=== PATIENT | female | born 1960 | race Caucasian/White ===

== ENCOUNTER → 2017-07-29 | Outpatient (CLI) | payer OTHER ==
[~2017-07-29] MED LIST: BND25X
[2017-07-29 17:54] LABS: BLOOD UREA NITROGEN 18 mg/dl (7-18); BUN/CREATININE RATIO 25.2 (10-20); CARBON DIOXIDE 31 mmol/L (21-32); CHLORIDE 101 mmol/L (98-107); CREATININE 0.72 mg/dl (0.60-1.20); GLUCOSE 103 mg/dl (70-99); POTASSIUM 3.6 mmol/L (3.5-5.1); SODIUM 137 mmol/L (136-145)
== END | disposition home or self-care (01) ==
LOC: C.LABPVFM 13:51
PROVIDERS: ATTEND Nurse Practitioner
DX: G71.0 Muscular dystrophy (principal)

== ENCOUNTER 2017-10-31 12:19 | Emergency (ER) | payer OTHER ==
[~2017-10-31] VITALS: Ht 157.5 cm; Wt 67.0 kg
[2017-10-31 12:25] VITALS: TEMP 36.7; Ht 157.5 cm; Wt 67.0 kg
[2017-10-31] MEDS ORDERED: HYDR12.56 PO (12:47)
[2017-10-31] MEDS ORDERED: IBUP-1050 PO (12:47)
[2017-10-31] MEDS ORDERED: FLUT1INH INH (12:47)
[2017-10-31] MEDS ORDERED: DIPH25CA65 PO (12:47)
[2017-10-31] MEDS ORDERED: OMEG10007 PO (12:47)
[2017-10-31] MEDS ORDERED: PRED20TA PO (12:47)
[2017-10-31] MEDS ORDERED: LISI-461 PO (12:47)
[2017-10-31] MEDS ORDERED: UMEC1INH INH (12:47)
[2017-10-31] MEDS ORDERED: POTA99TA PO (12:47)
[2017-10-31 13:00] LABS: BASO % 0.2 %; BASO ABS # 0.03 K/uL (0-0.2); EOS % 0.1 %; EOS ABS # 0.02 K/uL (0-0.5); HEMATOCRIT 49.4 % (37-47); HEMOGLOBIN 15.9 g/dL (12.0-16.0); IG# 0.02 K/uL (0.00-0.02); LYMPH % 11.6 %; LYMPH ABS # 1.55 K/uL (1.2-3.4); MEAN CELL VOLUME 96.3 fL (80-100); MEAN CORPUSCULAR HGB CONC 32.2 g/dl (32-36); MEAN PLATELET VOLUME 9.5 fL (7.4-10.4); MONO % 4.3 %; MONO ABS # 0.58 K/uL (0.11-0.59); NEUT % 83.7 %; NEUT ABS # 11.17 K/uL (1.4-6.5); PLATELET COUNT 377 K/uL (130-400); RED CELL DISTRIBUTION WIDTH CV 14.5 % (11.5-14.5); RED CELL DISTRIBUTION WIDTH SD 51.1 fL (36.4-46.3); WHITE BLOOD COUNT 13.37 K/uL (4.8-10.8)
[2017-10-31 13:12] LABS: CALCIUM 9.6 mg/dl (8.5-10.1); CREATININE 0.37 mg/dl (0.60-1.20); POTASSIUM 3.3 mmol/L (3.5-5.1)
[2017-10-31 13:40] VITALS: BP 136/95; PULSE 102; O2SAT 92
--- NOTE | 2017-10-31 17:59 | EMERGENCY ROOM VISIT NOTE ---
History Report prepared by Nathaly: Tatyana Mason Under the Supervision of: Dr. Toni Treviño D.O. First contact with patient: 12:30 Chief Complaint: HEAD PAIN Stated Complaint: LUMPS/PAIN ON HEAD & L SIDE OF FACE History of Present Illness The patient is a 57 year old female who presents to the Emergency Room with complaints of worsening red lumps on the left side of her head beginning on Wednesday, four days ago. The patient states the lumps on her head are sore and painful to touch. She reports she has about 5 lumps in total. The patient states she went to a clinic a couple days ago and she was diagnosed with temporal arteritis and was put on prednisone. Lump is extremely painful upon palpation. It is sharp and stabbing in nature. The patient states the lumps have gotten more sore since she was put on prednisone. Pt denies headache, change in vision, change in vision, headache, pain with biting down, fevers, chest pain, shortness of breath, nausea, vomiting, diarrhea, pain with urination , and melena. Source of History: patient Onset: four days ago Position: head Quality: other (re lumps) Timing: worsening Associated Symptoms: No headache, No chest pain, No SOB, No nausea, No vomiting Review of Systems See HPI for pertinent positives & negatives. A total of 10 systems reviewed and were otherwise negative. Past Medical & Surgical Medical Problems: (1) No Known Active Medical Problems Family History Patient reports no known family medical history. Social History Smoking Status: Current Every Day Smoker Marital Status: Housing Status: lives with significant other Current/Historical Medications Scheduled Diphenhydramine Hcl (Benadryl Allergy), 1 CAP PO HS Fish Oil ([place]-3), 1 CAP PO DAILY Fluticasone Furoate-Vilanterol (Breo Ellipta), 1 PUFF INH DAILY Hydrochlorothiazide (Hctz), 12.5 MG PO DAILY Ibuprofen (Advil), 200 MG PO HS Lisinopril (Zestril), 10 MG PO DAILY Potassium (Potassium), 1 TAB PO DAILY Prednisone (Prednisone), 20 MG PO DIRECTED Umeclidinium Dresser (Incruse Ellipta), 1 PUFF INH DAILY Allergies Coded Allergies: No Known Allergies (Unverified , 09/30/06) Physical Exam Vital Signs Date Time Temp Pulse Resp B/P (MAP) Pulse Ox O2 Delivery O2 Flow Rate FiO2 10/31/17 13:40 102 136/95 92 Room Air 10/31/17 12:25 36.7 108 18 143/94 94 Room Air Physical Exam GENERAL: Sitting up in bed, alert, well appearing, well nourished, no distress, non-toxic HEAD: 3 areas of erythema which are slightly raised, on left side of scalp and left eyebrow, no vesicles. EYE EXAM: normal conjunctiva. OROPHARYNX: no exudate, no erythema, lips, buccal mucosa, and tongue normal and mucous membranes are moist NECK: supple, no nuchal rigidity, no adenopathy, non-tender LUNGS: Clear to auscultation. Normal chest wall mechanics HEART: no murmurs, S1 normal and S2 normal ABDOMEN: abdomen soft, non-tender, normo-active bowel sounds, no masses, no rebound or guarding. UPPER EXTREMITIES: upper extremities are grossly normal. LOWER EXTREMITIES: No pitting edema. NEURO EXAM: Normal sensorium, cranial nerves II-XII grossly intact, normal speech, no gross weakness of arms, no gross weakness of legs. Medical Decision & Procedures Laboratory Results 10/31/17 12:50 Red Blood Count 5.13, Mean Corpuscular Volume 96.3, Mean Corpuscular Hemoglobin 31.0, Mean Corpuscular Hemoglobin Concent 32.2, Mean Platelet Volume 9.5, Neutrophils (%) (Auto) 83.7, Lymphocytes (%) (Auto) 11.6, Monocytes (%) (Auto) 4.3, Eosinophils (%) (Auto) 0.1, Basophils (%) (Auto) 0.2, Neutrophils # (Auto) 11.17, Lymphocytes # (Auto) 1.55, Monocytes # (Auto) 0.58, Eosinophils # (Auto) 0.02, Basophils # (Auto) 0.03 10/31/17 12:50 Test 10/31/17 12:50 White Blood Count 13.37 K/uL (4.8-10.8) Red Blood Count 5.13 M/uL (4.2-5.4) Hemoglobin 15.9 g/dL (12.0-16.0) Hematocrit 49.4 % (37-47) Mean Corpuscular Volume 96.3 fL (80-100) Mean Corpuscular Hemoglobin 31.0 pg (25-34) Mean Corpuscular Hemoglobin Concent 32.2 g/dl (32-36) Platelet Count 377 K/uL (130-400) Mean Platelet Volume 9.5 fL (7.4-10.4) Neutrophils (%) (Auto) 83.7 % Lymphocytes (%) (Auto) 11.6 % Monocytes (%) (Auto) 4.3 % Eosinophils (%) (Auto) 0.1 % Basophils (%) (Auto) 0.2 % Neutrophils # (Auto) 11.17 K/uL (1.4-6.5) Lymphocytes # (Auto) 1.55 K/uL (1.2-3.4) Monocytes # (Auto) 0.58 K/uL (0.11-0.59) Eosinophils # (Auto) 0.02 K/uL (0-0.5) Basophils # (Auto) 0.03 K/uL (0-0.2) RDW Standard Deviation 51.1 fL (36.4-46.3) RDW Coefficient of Variation 14.5 % (11.5-14.5) Immature Granulocyte % (Auto) 0.1 % Immature Granulocyte # (Auto) 0.02 K/uL (0.00-0.02) Anion Gap 8.0 mmol/L (3-11) Est Creatinine Clear Calc Drug Dose 152.4 ml/min Estimated GFR () 138.5 Estimated GFR (Non- 119.5 BUN/Creatinine Ratio 58.1 (10-20) Calcium Level 9.6 mg/dl (8.5-10.1) Laboratory results per my review. ED Course ED COURSE: Vital signs were reviewed and showed tachycardic The patients medical record was reviewed The above diagnostic studies were performed and reviewed. ED treatments and interventions as stated above. 1231: The patient was evaluated in room A10. A complete history and physical examination was performed. 1358: I updated the patient on her test results. 1406: Upon reevaluation, the patient is resting comfortably.I discussed my findings with the patient and she understands and agrees with the treatment plan. Based on the patients age, coexisting illnesses, exam and lab findings the decision to treat as an outpatient was made. The patient remained stable while under my care. The patient appeared well at the time of discharge. Medical Decision Differential diagnosis: Etiologies such as contact dermatitis, viral exanthem, urticaria, allergic reaction, Meza-Elier syndrome, toxic epidermal necrolysis, erythema multiforme, cellulitis, scabies, HSV, varicella, zoster, eczema, staph scalded skin syndrome, fungal infection, as well as others were entertained. Patient is a 57-year-old female who presents the ER for rash. On exam she has several areas of erythema on top of her head on the left side. No vesicles. Question zoster. CBC shows a mild leukocytosis. Potassium 3.3. Do favor both secondary to steroids. Patient is otherwise well-appearing. No involvement of the eye. She is updated at bedside. She is discharged follow-up with PCP as an outpatient. I do not believe that there is any signs of cellulitis or abscess. Discussed with Pt concerning signs and symptoms to watch out for. Pt was instructed to follow up with their PCP and discussed with the patient their option to return to the ED at anytime for persistent or worsening symptoms. The appropriate anticipatory guidance and out-patient management, including indications for return to the emergency department, were explained at length to the patient and understood. Medication Reconcilliation Current Medication List: was personally reviewed by me Blood Pressure Screening Patient's blood pressure: Normal blood pressure Impression Primary Impression: Rash Additional Impressions: Leukocytosis Hypokalemia Scribe Attestation The scribe's documentation has been prepared under my direction and personally reviewed by me in its entirety. I confirm that the note above accurately reflects all work, treatment, procedures, and medical decision making performed by me. Departure Information Dispostion Home / Self-Care Referrals Ingris Zamora C.R.N.P (PCP) Forms HOME CARE DOCUMENTATION FORM, IMPORTANT VISIT INFORMATION, WORK / SCHOOL INSTRUCTIONS Patient Instructions ED Shingles, [facility], Rash - [facility] Additional Instructions Please follow up with your primary care doctor with in the next 24 hours. Any worsening of your symptoms, please return to the ED immediately. This includes any fevers greater than 100.4, worsening pain, chest pain, shortness breath, persistent nausea, vomiting, unable to eat or drink, or any other concerning signs or symptoms from your standpoint. Please make sure you follow-up with your PCP in the next 2 days as this does not classically look like shingles by do favor that is the likely cause. Any involvement of your eye please return immediately to the ER. Please continue steroids as previously prescribed. Problem Qualifiers Additional Impressions: Leukocytosis Leukocytosis type: unspecified Qualified Codes: D72.829 - Elevated white blood cell count, unspecified
== END 2017-10-31 14:10 | disposition home or self-care (01) ==
LOC: C.EDB 12:20 → C.EDA 14:10
DX: R21 Rash and other nonspecific skin eruption (principal); D72.829 Elevated white blood cell count, unspecified; E87.6 Hypokalemia; Z79.899 Other long term (current) drug therapy; F17.200 Nicotine dependence, unspecified, uncomplicated

== ENCOUNTER 2023-10-11 18:47 | Inpatient (IN) ==
--- NOTE | 2023-10-11 19:05 | Emergency Department Note ---
Impression & Plan Colonic diverticular abscess, Bilateral lower abdominal pain ED Provider Note NAME: BARBY MARTINEZ AGE: 63 SEX: F : 1960 ARRIVES VIA: Ambulance INFORMANT: Patient, ED PROVIDER(S): Anthony Tomas DO CHIEF COMPLAINT: Abdominal pain HPI: The patient is a 63-year-old female who presented to the emergency department for an evaluation of abdominal pain. The patient had abdominal cramping and loose bowel movements over the course the last week. The patient denies having any fever. She has had no vomiting. The patient denies having any significant constipation but she does feel as though she is having trouble passing formed stools. She denies having lower extremity swelling. She has not been seen by her family doctor. ROS: See above HPI for pertinent positives & negatives. A total of 10 systems reviewed and were otherwise negative. PAST MEDICAL HISTORY: See Below PAST SURGICAL HISTORY: See Below FAMILY HISTORY: See Below SOCIAL HISTORY: See Below HOME MEDICATIONS: See Below ALLERGIES: See Below VITALS: See Below PHYSICAL EXAMINATION: GENERAL: Patient is awake alert in no acute distress patient is resting comfortably and showing no signs of anxiety EYES: The conjunctivae are clear. The pupils are round and reactive. EARS, NOSE, MOUTH AND THROAT: The nose is without any evidence of any deformity. NECK: The neck is nontender and supple. RESPIRATORY: Normal respiratory effort is noted there is no evidence of wheezing rhonchi or rales CARDIOVASCULAR: Regular rate and rhythm noted there no murmurs rubs or gallops normal S1 normal S2. GASTROINTESTINAL: The abdomen is soft and mildly distended. There is diffuse tenderness to palpation but no guarding rigidity MUSCULOSKELETAL/EXTREMITIES: There is no evidence of gross deformity full range of motion is noted in the hips and shoulders. SKIN: There is no obvious evidence of any rash. There are no petechiae, pallor or cyanosis noted. NEUROLOGIC: Patient is awake alert and oriented x3 The patient is a 63-year-old female who presented to the emergency department for an evaluation of abdominal pain and diarrhea. MEDICAL DECISION MAKING: The patient did have reproducible lower abdominal tenderness on physical exam. Her white blood cell count was found to be elevated. Radiographic studies did not reveal an obvious source for the patient's complaints. For this reason CT of the abdomen and pelvis was obtained which appears to be consistent with a diverticular abscess. I discussed the patient's laboratory and radiographic studies with her. I discussed her condition with the on-call [facility] general surgeon. He does recommend that we consider transfer for the patient for possible interventional radiology. I discussed this case with the surgeon at [facility]. They have agreed to accept the patient in transfer. Transfer paperwork was filled out by myself. Triage Nursing notes reviewed. Prior medical records reviewed Vital Signs: reviewed and remarkable for elevated blood pressure. Differential diagnosis: Etiologies such as appendicitis, diverticulitis, obstruction, inflammatory bowel disease, renal colic, PUD, biliary pathology, pancreatitis, mesenteric ischemia, aortic pathology, infections, genitourinary, UTI, perforated viscus, as well as others were entertained. ER treatment provided: See below Diagnostics interpreted by me: ECG: none Cardiac Monitoring: An order was placed for continuous cardiac monitoring. The monitor shows a rate of 77 bpm with sinus rhythm. Laboratory studies: As stated above and show below. Imaging studies: See below. Radiographic imaging was reviewed by myself Consultation(s): I discussed this case with Dr. Vazquez who is on-call for general surgery. I discussed this case with Dr. Thomas who is on-call for surgery at [facility]. I discussed this case with Dr. Stern who is on-call for surgery at [facility]. I discussed this case with Dr. De who is on-call for internal medicine hospitalist at [facility]. They will accept the patient in transfer. The patient is awaiting transportation and room assignment at this time. The patient was signed out to Dr. Perales at change of shift. Please see his note for overnight care and further disposition. Past Med/Surg History Medical History Encounter for screening for malignant neoplasm of rectum Encounter for screening for malignant neoplasm of colon Nicotine dependence Acute respiratory failure with hypoxia Bilateral leg weakness Right leg pain Muscular dystrophy Tachycardia Hypertension Acid reflux Cellulitis Chronic bronchitis Leukocytosis Hypokalemia Surgical History Hx of cholecystectomy Family History Denies family history of Ovarian cancer Prostate cancer Myocardial infarction Breast cancer Social History (Reviewed 10/11/23 @ 19:04 by PAM Cartwright Smoking Status: Former smoker Hx Alcohol Use: No Hx Substance Use: No Preferred Language: Pashto marital status: Current Living Situation: Spouse current occupational status: disabled Feels Safe at Home: Yes caffeine: Yes Dental Care, Regularly: No Physical Activity Frequency: Does not Exercise Seatbelt Use: always Sunscreen Use: Yes Allergies Allergies Allergy/AdvReac Type Severity Reaction Status Date / Time No Known Allergies Allergy Unverified 10/11/23 21:51 Home Meds Home Medications Medication Instructions Recorded Confirmed omeprazole 20 mg capsule,delayed 20 mg PO QAM 10/11/23 10/11/23 release Previous Rx's Medication Instructions Recorded fluticasone propionate 50 1 sprays intranasal BID PRN 01/15/19 mcg/actuation nasal allergy symptoms #18.2 grams spray,suspension Portable Oxygen E0431 #1 ea 09/12/20 Incentive Spirometer #1 ea 10/18/20 albuterol sulfate 90 mcg/actuation 2 puff inhalation Q4H PRN 10/14/21 aerosol inhaler (ProAir HFA) shortness of breath #18 grams gabapentin 100 mg capsule 100 mg PO BID #180 caps 11/16/22 hydrochlorothiazide 25 mg tablet 25 mg PO DAILY #90 tabs 11/25/22 metformin 500 mg tablet,extended 500 mg PO DAILY #90 tabs 11/25/22 release 24hr (osmotic) potassium chloride 20 mEq 20 meq PO BID #180 tabs 11/25/22 tablet,extended release metoprolol succinate 50 mg 50 mg PO DAILY #90 tabs 12/14/22 tablet,extended release 24 hr Flutter Valve #1 ea 04/14/23 Results & Data (ED) Vital Signs Vital Signs - 24 hr 10/11/23 19:02 10/11/23 19:06 10/11/23 19:08 Temperature 36.9 C 36.9 C Temperature Source Oral Oral Pulse Rate 112 H 101 H Pulse Rate [Right Finger] 105 H Pulse Rate from SpO2 Sensor 101 H Pulse Rhythm [Right Finger] Pulse Strength [Right Finger] Respiratory Rate 20 21 19 Respiratory Effort / Characteristics Non-Labored Spontaneous Respiratory Depth Normal Respiratory Pattern Regular Blood Pressure 148/95 H Blood Pressure [Right Arm] 148/95 H Blood Pressure Mean 112 Blood Pressure Mean [Right Arm] 112 Blood Pressure Position [Right Arm] Sitting Pulse Oximetry 99 98 98 Oxygen Delivery Method Nasal Cannula Nasal Cannula Oxygen Flow Rate 2 2 Sepsis Recent Fever Within 48 Hours No Sepsis New/Unexplained Change in Mental Status N/A Sepsis Action Taken by Nursing No Action Required 10/11/23 19:14 10/11/23 19:20 10/11/23 19:30 Temperature Temperature Source Pulse Rate 105 H 99 H 95 H Pulse Rate [Right Finger] Pulse Rate from SpO2 Sensor 95 H Pulse Rhythm [Right Finger] Pulse Strength [Right Finger] Respiratory Rate 25 H Respiratory Effort / Characteristics Respiratory Depth Respiratory Pattern Blood Pressure Blood Pressure [Right Arm] Blood Pressure Mean Blood Pressure Mean [Right Arm] Blood Pressure Position [Right Arm] Pulse Oximetry 98 98 Oxygen Delivery Method Nasal Cannula Oxygen Flow Rate 2 Sepsis Recent Fever Within 48 Hours Sepsis New/Unexplained Change in Mental Status Sepsis Action Taken by Nursing 10/11/23 20:00 10/11/23 20:30 10/11/23 21:00 Temperature Temperature Source Pulse Rate 92 H 85 81 Pulse Rate [Right Finger] Pulse Rate from SpO2 Sensor 88 84 81 Pulse Rhythm [Right Finger] Pulse Strength [Right Finger] Respiratory Rate 32 H 31 H 31 H Respiratory Effort / Characteristics Respiratory Depth Respiratory Pattern Blood Pressure Blood Pressure [Right Arm] Blood Pressure Mean Blood Pressure Mean [Right Arm] Blood Pressure Position [Right Arm] Pulse Oximetry 93 98 96 Oxygen Delivery Method Oxygen Flow Rate Sepsis Recent Fever Within 48 Hours Sepsis New/Unexplained Change in Mental Status Sepsis Action Taken by Nursing 10/11/23 21:30 10/11/23 21:55 10/11/23 21:55 Temperature Temperature Source Pulse Rate 87 83 Pulse Rate [Right Finger] Pulse Rate from SpO2 Sensor 89 82 Pulse Rhythm [Right Finger] Pulse Strength [Right Finger] Respiratory Rate 21 33 H Respiratory Effort / Characteristics Respiratory Depth Respiratory Pattern Blood Pressure 153/89 H Blood Pressure [Right Arm] Blood Pressure Mean 106 Blood Pressure Mean [Right Arm] Blood Pressure Position [Right Arm] Pulse Oximetry 96 97 Oxygen Delivery Method Oxygen Flow Rate Sepsis Recent Fever Within 48 Hours Sepsis New/Unexplained Change in Mental Status Sepsis Action Taken by Nursing 10/11/23 22:00 10/11/23 22:30 10/11/23 23:12 Temperature Temperature Source Pulse Rate 82 77 82 Pulse Rate [Right Finger] Pulse Rate from SpO2 Sensor 84 78 Pulse Rhythm [Right Finger] Pulse Strength [Right Finger] Respiratory Rate 27 H 24 Respiratory Effort / Characteristics Respiratory Depth Respiratory Pattern Blood Pressure Blood Pressure [Right Arm] Blood Pressure Mean Blood Pressure Mean [Right Arm] Blood Pressure Position [Right Arm] Pulse Oximetry 97 97 Oxygen Delivery Method Oxygen Flow Rate Sepsis Recent Fever Within 48 Hours Sepsis New/Unexplained Change in Mental Status Sepsis Action Taken by Nursing 10/11/23 23:30 10/12/23 00:00 Temperature Temperature Source Pulse Rate 82 Pulse Rate [Right Finger] 76 Pulse Rate from SpO2 Sensor Pulse Rhythm [Right Finger] Regular Pulse Strength [Right Finger] Normal Respiratory Rate 23 20 Respiratory Effort / Characteristics Spontaneous Non-Labored Spontaneous Respiratory Depth Normal Respiratory Pattern Regular Blood Pressure Blood Pressure [Right Arm] 123/79 Blood Pressure Mean Blood Pressure Mean [Right Arm] 93 Blood Pressure Position [Right Arm] Lying Pulse Oximetry 97 96 Oxygen Delivery Method BiPAP Oxygen Flow Rate 2 2 Sepsis Recent Fever Within 48 Hours Sepsis New/Unexplained Change in Mental Status Sepsis Action Taken by Prison Medications Current Medication List: was personally reviewed by me Laboratory Data Attestation: I reviewed the patient's lab results. 10/11/23 19:12 10/11/23 19:12 Lab Results 10/11/23 10/11/23 Range/Units 19:12 23:03 WBC 15.35 H (4.8-10.8) K/ul RBC 4.62 (4.20-5.40) M/uL Hgb 13.6 (12.0-16.0) g/dl Hct 44.8 (37.0-47.0) % MCV 97.0 (80.0-100.0) fL MCH 29.4 (25.0-34.0) pg MCHC 30.4 L (32.0-36.0) g/dL RDW Std Deviation 52.7 H (36.4-46.3) fL RDW Coeff of Vaishali 14.7 H (11.5-14.5) % Plt Count 411 H (130-400) K/uL MPV 9.8 (9.4-12.4) fL Immature Gran % (Auto) 0.7 % Neut % (Auto) 78.4 % Lymph % (Auto) 11.7 % [place] % (Auto) 8.7 % Eos % (Auto) 0.1 % Baso % (Auto) 0.4 % Neut # (Auto) 12.03 H (1.40-6.50) K/uL Lymph # (Auto) 1.80 (1.20-3.40) K/uL [place] # (Auto) 1.34 H (0.11-0.59) K/uL Eos # (Auto) 0.01 (0.00-0.50) K/uL Baso # (Auto) 0.06 (0.00-0.20) K/uL Immature Gran # (Auto) 0.11 (0.01-0.20) K/uL Sodium 138 (136-145) mmol/L Potassium 3.3 L (3.5-5.1) mmol/L Chloride 96 L (98-107) mmol/L Carbon Dioxide 29 (21-32) mmol/L Anion Gap 13 H (3-11) BUN 17 (6-23) mg/dl Creatinine 0.47 L (0.6-1.2) mg/dl Est Cr Clr Drug Dosing 122.3 ml/min Est GFR ( Amer) 122.7 ml/min Est GFR (Non-Af Amer) 105.9 ml/min BUN/Creatinine Ratio 36.2 H (10-20) Glucose 138 H (70-99(Fasting)) mg/dl Calcium 9.4 (8.6-10.3) mg/dl Total Bilirubin 0.6 (0.2-1.0) mg/dl AST 14 (13-39) U/L ALT 14 (7-52) U/L Alkaline Phosphatase 94 (34-104) U/L Total Protein 7.6 (6.0-8.3) gm/dl Albumin 3.6 (3.4-5.0) gm/dl Globulin 4.0 (2.5-4.0) gm/dl Albumin/Globulin Ratio 0.9 (0.9-2) Lipase 33 (11-82) U/L SARS-CoV-2, RNA, NAAT NEGATIVE (NEGATIVE) Administered Medications Morphine Sulfate (Morphine Sulfate 4 Mg/Ml 1 Ml Carp\Vial) 4 mg IV Q15M PRN PRN Reason: Pain Stop: 10/25/23 18:54 Last Admin: 10/11/23 19:33 Dose: 4 mg Documented By: BMK Morphine Sulfate (Morphine Sulfate 4 Mg/Ml 1 Ml Carp\Vial) 4 mg IV Q30M PRN PRN Reason: Pain Stop: 10/25/23 23:35 Last Admin: 10/11/23 23:57 Dose: 4 mg Documented By: LANDON Discontinued Medications Sodium Chloride (Nss) 1,000 mls @ 999 mls/hr IV .Q1H1M STA Stop: 10/11/23 19:55 Last Infusion: 10/11/23 21:53 Dose: Infused Documented By: Admin: 10/11/23 19:33 Dose: 999 mls/hr Documented By: SAL Piperacillin Sod/Tazobactam Sod (Zosyn) 4.5 gm in 100 mls @ 200 mls/hr IV NOW ONE Stop: 10/11/23 22:42 Last Infusion: 10/11/23 23:20 Dose: Infused Documented By: Admin: 10/11/23 22:50 Dose: 200 mls/hr Documented By: SAL Sodium Chloride (Nss) 1,000 mls @ 999 mls/hr IV .Q1H1M ONE Stop: 10/11/23 23:13 Last Infusion: 10/11/23 23:49 Dose: Infused Documented By: Admin: 10/11/23 22:50 Dose: 999 mls/hr Documented By: SAL Ioversol (Optiray 320 500ml) 87 ml IV ONCE ONE Stop: 10/11/23 21:23 Last Admin: 10/11/23 21:23 Dose: 87 ml Documented By: SARTHAK Ondansetron HCl (Ondansetron Inj 2 Mg/Ml 2 Ml Vial) 4 mg IV NOW STA Stop: 10/11/23 18:56 Last Admin: 10/11/23 19:33 Dose: 4 mg Documented By: SAL Imaging Data Attestation: I personally reviewed and interpreted this imaging study as follows: My Impression: CT of the abdomen and pelvis was obtained in the emergency department. My interpretation is fluid collection in the lower pelvis, final report below. KUB was obtained in the emergency department. My interpretation is nonspecific bowel gas pattern, no free air, final report pending. 1 view chest x-ray was obtained in the emergency department. My interpretation is no free air or definite infiltrate, final report pending. Radiologist's Impression: Abdomen/Pelvis CT 10/11/23 19:24 Exam(s): CT ABDOMEN + PELVIS With Contrast IV Amt: 89 ml optiray 320 EXAM: CT Abdomen and Pelvis With Intravenous Contrast CLINICAL HISTORY: Reason for exam: lower pain. TECHNIQUE: Axial computed tomography images of the abdomen and pelvis with intravenous contrast. CTDI is 34.91 mGy and DLP is 1843.14 mGy-cm. Automated exposure control was utilized for the study. A dose lowering technique was utilized adhering to the principles of ALARA. CONTRAST: Patient received 89 ml optiray 320 of IV contrast COMPARISON: No relevant prior studies available. FINDINGS: Lung bases: Lungs demonstrate bibasilar atelectasis. ABDOMEN: Liver: Fatty infiltration of the liver. Gallbladder and bile ducts: Gallbladder has been removed. No ductal dilation. Pancreas: Unremarkable. No mass. No ductal dilation. Spleen: Unremarkable. No splenomegaly. Adrenals: 2.5 cm left adrenal nodule incompletely characterized on this single phase contrast-enhanced exam. Kidneys and ureters: Simple right renal cysts measuring up to 2.1 cm. No further workup is required. 0.4 cm calcification in the mid right kidney which appears to be associated with a cystic lesion concerning for a calculus in a calyceal diverticulum. No hydronephrosis. Stomach and bowel: Irregular fluid collection between the rectum and mid sigmoid colon measuring 5.4 x 5.9 x 7.0 cm most consistent with an abscess secondary to diverticulitis. No obstruction. PELVIS: Appendix: No findings to suggest acute appendicitis. Bladder: Unremarkable. No mass. Reproductive: Unremarkable as visualized. ABDOMEN and PELVIS: Intraperitoneal space: Unremarkable. No free air. No significant fluid collection. Bones/joints: No acute fracture. Chronically dislocated bilateral hips. Soft tissues: Marked muscular atrophy. Vasculature: Unremarkable. No abdominal aortic aneurysm. Lymph nodes: Unremarkable. No enlarged lymph nodes. IMPRESSION: 1. Irregular fluid collection between the rectum and mid sigmoid colon measuring 5.4 x 5.9 x 7.0 cm most consistent with an abscess secondary to diverticulitis. 2. 2.5 cm left adrenal nodule incompletely characterized on this single phase contrast-enhanced exam. 3. 0.4 cm calcification in the mid right kidney which appears to be associated with a cystic lesion concerning for a calculus in a calyceal diverticulum. Electronically signed by: Partha Hernandez M.D. 10/11/23 22:06 PM Discharge Plan Visit Data Chief Complaint: Abdominal Pain ED Provider: Brian Perales Discharge Problem: Colonic diverticular abscess, Bilateral lower abdominal pain Patient Disposition: Transfer Acute Care Hospital Forms Stand Alone Forms: My [facility] Prescriptions Prescriptions: No Action (DME) Portable Oxygen E0431 Misc See Rx Instructions .MEDSUPPLY Qty: 1 0RF Rx Instructions: Oxygen 2 liters continuous via Nasal Cannula with portable concentrator. OPHELIA 99 gabapentin 100 mg capsule 100 mg PO BID Qty: 180 3RF hydrochlorothiazide 25 mg tablet 25 mg PO DAILY Qty: 90 3RF metformin 500 mg tablet extended release 24hr 500 mg PO DAILY Qty: 90 3RF potassium chloride 20 mEq tablet extended release 20 meq PO BID Qty: 180 3RF metoprolol succinate 50 mg tablet extended release 24 hr 50 mg PO DAILY Qty: 90 3RF (DME) Flutter Valve Device See Rx Instructions .MEDSUPPLY Qty: 1 0RF Rx Instructions: Use it every 6 hours when awake. (DME) Incentive Spirometer Misc See Rx Instructions .MEDSUPPLY Qty: 1 0RF Rx Instructions: As directed albuterol sulfate [ProAir HFA] 90 mcg/actuation HFA aerosol inhaler 2 puff INH Q4H PRN (Reason: shortness of breath) Qty: 18 3RF Trelegy Ellipta 100-62.5-25 mcg blister with device 1 inh inhalation DAILY 0RF fluticasone propionate 50 mcg/actuation spray,suspension 1 sprays intranasal BID PRN (Reason: allergy symptoms) Qty: 18.2 0RF omeprazole 20 mg capsule,delayed release(DR/EC) 20 mg PO QAM Referrals Referrals: Ingris Zamora CRNP [Primary Care Provider] -
[2023-10-11 19:30] LABS: Basophils # (auto) 0.06 K/uL (0.00-0.20); Basophils % (auto) 0.4 %; Eosinophils # (auto) 0.01 K/uL (0.00-0.50); Eosinophils % (auto) 0.1 %; Hematocrit (blood only) 44.8 % (37.0-47.0); Hemoglobin 13.6 g/dl (12.0-16.0); Immature Granulocytes # (auto) 0.11 K/uL (0.01-0.20); Immature Granulocytes % (auto) 0.7 %; Lymphocytes % (auto) 11.7 %; Mean Corpuscular Hemoglobin 29.4 pg (25.0-34.0); Mean Corpuscular Hgb Conc 30.4 g/dL (32.0-36.0); Mean Platelet Volume 9.8 fL (9.4-12.4); Monocytes # (auto) 1.34 K/uL (0.11-0.59); Monocytes % (auto) 8.7 %; Neutrophils # (auto) 12.03 K/uL (1.40-6.50); Neutrophils % (auto) 78.4 %; Platelet Count 411 K/uL (130-400); RDW Coefficient of Variation 14.7 % (11.5-14.5); RDW Standard Deviation 52.7 fL (36.4-46.3); Red Blood Count 4.62 M/uL (4.20-5.40); White Blood Count 15.35 K/ul (4.8-10.8)
[2023-10-11] MEDS: SODIUM CHLORIDE 0.9% 1,000 ML IV STA (19:33)
[2023-10-11] MEDS: MoRPHine SULFATE 4 MG/ML 1 ML CARP\\VIAL IV PRN ×2 (19:33→23:57)
[2023-10-11] MEDS: ONDANSETRON INJ 2 MG/ML 2 ML VIAL IV STA (19:33)
[2023-10-11 19:42] LABS: Albumin Globulin Ratio 0.9 (0.9-2); Albumin Level 3.6 gm/dl (3.4-5.0); BUN Creatinine Ratio 36.2 (10-20); Bilirubin,Total 0.6 mg/dl (0.2-1.0); Calcium 9.4 mg/dl (8.6-10.3); Creatinine Clr Calc Pharmacy 122.3 ml/min; Est GFR (African American) 122.7 ml/min; Est GFR (Non-African American) 105.9 ml/min; Potassium 3.3 mmol/L (3.5-5.1); Total Protein 7.6 gm/dl (6.0-8.3)
[2023-10-11] MEDS: OPTIRAY 320 500ml IV ONE (21:23)
--- NOTE | 2023-10-11 22:06 | CT Scan Report ---
Exam(s): CT ABDOMEN + PELVIS With Contrast IV Amt: 89 ml optiray 320 EXAM: CT Abdomen and Pelvis With Intravenous Contrast CLINICAL HISTORY: Reason for exam: lower pain. TECHNIQUE: Axial computed tomography images of the abdomen and pelvis with intravenous contrast. CTDI is 34.91 mGy and DLP is 1843.14 mGy-cm. Automated exposure control was utilized for the study. A dose lowering technique was utilized adhering to the principles of ALARA. CONTRAST: Patient received 89 ml optiray 320 of IV contrast COMPARISON: No relevant prior studies available. FINDINGS: Lung bases: Lungs demonstrate bibasilar atelectasis. ABDOMEN: Liver: Fatty infiltration of the liver. Gallbladder and bile ducts: Gallbladder has been removed. No ductal dilation. Pancreas: Unremarkable. No mass. No ductal dilation. Spleen: Unremarkable. No splenomegaly. Adrenals: 2.5 cm left adrenal nodule incompletely characterized on this single phase contrast-enhanced exam. Kidneys and ureters: Simple right renal cysts measuring up to 2.1 cm. No further workup is required. 0.4 cm calcification in the mid right kidney which appears to be associated with a cystic lesion concerning for a calculus in a calyceal diverticulum. No hydronephrosis. Stomach and bowel: Irregular fluid collection between the rectum and mid sigmoid colon measuring 5.4 x 5.9 x 7.0 cm most consistent with an abscess secondary to diverticulitis. No obstruction. PELVIS: Appendix: No findings to suggest acute appendicitis. Bladder: Unremarkable. No mass. Reproductive: Unremarkable as visualized. ABDOMEN and PELVIS: Intraperitoneal space: Unremarkable. No free air. No significant fluid collection. Bones/joints: No acute fracture. Chronically dislocated bilateral hips. Soft tissues: Marked muscular atrophy. Vasculature: Unremarkable. No abdominal aortic aneurysm. Lymph nodes: Unremarkable. No enlarged lymph nodes. IMPRESSION: 1. Irregular fluid collection between the rectum and mid sigmoid colon measuring 5.4 x 5.9 x 7.0 cm most consistent with an abscess secondary to diverticulitis. 2. 2.5 cm left adrenal nodule incompletely characterized on this single phase contrast-enhanced exam. 3. 0.4 cm calcification in the mid right kidney which appears to be associated with a cystic lesion concerning for a calculus in a calyceal diverticulum. Electronically signed by: Partha Hernandez M.D. 10/11/23 22:06 PM
[2023-10-11] MEDS: SODIUM CHLORIDE 0.9% 1,000 ML IV ONE (22:50)
[2023-10-11] MEDS: PIPERACILLIN/TAZOBACTAM 4.5 GM/100 ML BAG IV ONE (22:50)
--- NOTE | 2023-10-12 01:23 | Emergency Department Note ---
ED Visit Note ED Physician Sign Out Note: 63-year-old female already accepted to be transferred to [facility] for colorectal evaluation due to pelvic abscess. Receiving IV ABX. Evaluated shortly after signout around 2 AM. Patient is sleeping comfortably on her typical CPAP that she uses at night. Awaiting transfer. Vital stable. Still no bed given from [facility] as of 7 AM and thus signed out to morning physician (Dr Corrigan). Brian Perales MD
[2023-10-12] MEDS: PIPERACILLIN/TAZOBACTAM 4.5 GM in DEXTROSE 5% MINI-B 100 ML IV SCH (03:53)
--- NOTE | 2023-10-12 07:01 | XRay Report ---
XR chest 1V portable CLINICAL HISTORY: abd pain TECHNIQUE: Single frontal radiograph of the chest was obtained. Comparison: Comparison is made to chest radiograph 09/04/[address] chest 10/13/2021 FINDINGS: No lines and tubes are seen. Calcified aortic knob is seen. Lungs are underinflated but clear. Blunti ng of the left costophrenic angle is again seen. IMPRESSION: No acute abnormalities despite underinflated lungs. There is blunting of the left costophrenic angle which likely represents extrapleural fat is seen on prior exams. ACT 112: Negative or not required by law. Electronically signed by: Jorge Alberto Angel M.D. 10/12/2023 6:59 AM
--- NOTE | 2023-10-12 07:16 | XRay Report ---
XR KUB/Abdomen 1 view CLINICAL HISTORY: pain TECHNIQUE: 1 view of the abdomen was obtained. Comparison: None available at the time of this dictation. FINDINGS: Lung bases are unremarkable. Degenerative changes are seen in the visualized skeleton. There is sublu xation of the bilateral hip joints, likely degenerative. The bowel gas pattern is nonobstructive. Sma ll stool burden is seen. IMPRESSION: Nonobstructive bowel gas pattern. ACT 112: Negative or not required by law. Electronically signed by: Jorge Alberto Angel M.D. 10/12/2023 7:15 AM
--- NOTE | 2023-10-12 09:41 | Emergency Department Note ---
ED Visit Note Patient was signed out to me at change of shift by Dr. Perales, briefly the patient is a 63-year-old female who was found to have diverticular abscess between the rectum and mid sigmoid colon on CT imaging. Patient was recommended for transfer by on-call general surgery here at this facility. Patient was accepted for transfer to [facility] however there is no bed available. I was informed by the ED paralegal secretary at approximately [address] [facility] would like to divert the patient to [facility] if the patient is agreeable secondary to lack of bed availability at [place]. I did discuss this with the patient and she is agreeable. Case was discussed with the on-call colorectal surgeon at [facility] at approximately 10:45 AM, Dr. Khan, and he did accept the patient for transfer. While arranging transportation after bed availability was assigned at [facility], the patient remained on BiPAP. She was sleeping and requested to have it remain on. On my reassessment prior to transfer I did order the RN to remove the BiPAP and placed the patient back on her baseline nasal cannula oxygen for history of COPD. Shortly after this the patient experienced some increased work of breathing, she had hypoxia at 75% with some wheezing and did not tolerate being off BiPAP successfully. BiPAP was therefore placed again, patient was ordered DuoNeb breathing treatment and IV Solu-Medrol. On my reassessment when BiPAP was placed back on the patient had some expiratory wheezing and was diminished bilaterally. Clinically I do feel that this is consistent with an acute COPD exacerbation. Patient on further history states that she has been using her BiPAP not only at night but throughout most of the day for about the past week. Given the patient's change in status, I did discuss the case again with [facility] med call, case was discussed with the on-call ICU doctor at [facility], Dr. Marcial, and the patient was accepted to the ICU with plan for colorectal surgery consultation. The surgical services assistant was also taking part in this phone call and is updated on the patient's change in clinical status and change of the admitting service to the ICU attending. Plan will be for transfer via critical care transportation while the patient remains on BiPAP. On my reassessment prior to transfer the patient is now on BiPAP at 18/6 with improved tachypnea and improvement in previously noted wheezing following 2 DuoNeb breathing treatments and IV Solu-Medrol. Patient appears stable at this time while on BiPAP. Patient is in agreement for transfer, she did sign updated transfer paperwork at the bedside in regards to transfer to [facility] to the ICU under the accepting service of Dr. Marcial. Patient is currently pending ICU bed assignment at [facility]. Will plan for critical care air transport once a bed becomes available. Patient was signed out to my colleague, Dr. Garcia, at 1700 pending transport. .
[2023-10-12] MEDS ORDERED: NON-FORMULARY MEDICATION (Fluticasone-Umeclidin-Vilanter [Trelegy Ellipta] 100-62.5-25 mcg INH SCH (11:45)
[2023-10-12] MEDS ORDERED: NON-FORMULARY MEDICATION (Omeprazole 20 mg capsule,delayed release(DR/EC)) PO SCH (11:45)
[2023-10-12] MEDS: hydroCHLOROthiazide 25 MG TAB PO SCH (13:14)
[2023-10-12] MEDS: PANTOprazole 40 MG TAB PO SCH (13:14)
[2023-10-12] MEDS: POTASSIUM CHLORIDE CRTAB 20 MEQ TABCR PO SCH (13:14)
[2023-10-12] MEDS: METOPROLOL SUCC 50MG EXT REL TAB PO SCH (13:14)
[2023-10-12] MEDS: FLUTICASONE FUROATE 100MCG 14 PUFFS/INHALER INH SCH (14:34)
[2023-10-12] MEDS: UMECLIDINIUM/VILANTEROL 62.5/25MCG 7 PUFFS/INHALER INH SCH (14:34)
[2023-10-12] MEDS: metFORMIN HCL ER 500 MG TABCR PO SCH (14:56)
[2023-10-12] MEDS: ALBUT/IPRATROP 3MG/0.5MG NEB 3 ML VIAL NEB STA ×2 (15:22→16:00)
[2023-10-12] MEDS: methylPREDNISolone 125 MG/2 ML VIAL IV STA (15:37)
--- NOTE | 2023-10-12 16:19 | XRay Report ---
SINGLE VIEW CHEST CLINICAL HISTORY: Dyspnea. COPD. FINDINGS: 2 AP, portable, upright chest radiographs are compared to study dated 10/11/2023 and correlat ed with chest CT dated 10/13/2021. The heart is enlarged noting atherosclerotic calcification of the th oracic aorta. The pulmonary vasculature is noncongested. Emphysema and chronic interstitial thickenin g is similar to previous. There is bibasilar scarring/atelectasis. A pleural density at the left lung base is unchanged and corresponds to a large fat-containing Bochdalek hernia when compared to the pr ior CT scan. No pneumothorax is seen. The skeletal structures are osteopenic. The bony thorax is donnie sly intact. Cholecystectomy clips are seen in the right upper quadrant. IMPRESSION: 1. Cardiomegaly and emphysema without radiographic evidence of congestive failure. 2. No airspace consolidation or large pleural effusion is identified. ACT 112: Negative or not required by law. Electronically signed by: Cedric Barbosa M.D. 10/12/2023 4:18 PM
--- NOTE | 2023-10-12 18:19 | Emergency Department Note ---
ED Visit Note Patient was signed out to me by Dr. Corrigan at shift change. In summary, patient presented on 10/11/2023 with complaint of abdominal pain. She was having abdominal cramping and loose stools over the last week that had no fevers or vomiting. She was found to have a diverticular abscess. [facility] general surgery was consulted and recommended transfer for possible interventional radiology interventions. During her stay in the emergency department today, 10/12/2023. Patient was stable up until transportation arrived to transport the patient to [facility]. She was on BiPAP throughout the day today. Attempted to remove the BiPAP and placed her on nasal cannula for her history of COPD, but she became hypoxic to 75% with some wheezing and had to be placed back on the BiPAP. Patient has been on BiPAP all day. She is on BiPAP 40% FiO2 and 18/6. Dr. Corrigan did contact [facility] and had upgraded the patient to ICU admission with colorectal surgery consultation. In summary: - Laboratory workup interpreted by myself showed leukocytosis (WBC 15.35) with left shift; hypokalemia (K 3.3); elevated BNP (281); normal lipase - CXR negative for pneumonia. Noted to have cardiomegaly per radiology - KUB obtained yesterday was negative - CT abdomen/pelvis with IV contrast showed irregular fluid collection between rectum and mid-sigmoid colon consistent with abscess. - Patient has been receiving IV zosyn for antibiotic coverage while in ER. - Home meds were ordered by previous provider. - Laboratory workup had not been obtained in over 24 hours on this patient. I did order CBC, BMP and a procalcitonin level. - Patient was accepted to [facility] to the intensive care unit given her significant BiPAP settings. At time of signout, the plan was that the bed was going to be assigned soon. However, as of 1999, the patient does have a bed availability but there is no transport available until the morning of 10/13/2023. Given patient's critical status, hospitalist was consulted for admission and and will be admitted until transfer can be arranged. - Patient admitted to [facility] hospitalist service until transport can be arranged for her acceptance for transfer at [facility]. .
[2023-10-12] MEDS: GABAPENTIN 100 MG CAP PO SCH (20:08)
--- NOTE | 2023-10-12 21:08 | History & Physical Report ---
Date of Service October 12, 2023 Assessment & Plan (1) Colonic diverticular abscess: (2) Chronic respiratory failure with hypoxia: (3) Muscular dystrophy: (4) BiPAP (biphasic positive airway pressure) dependence: (5) Pulmonary hypertension: (6) Diabetes mellitus: (7) Acid reflux: (8) Nicotine dependence: (9) Depression: Plan Colonic diverticular abscess- NPO Zosyn 4.5 g IV every 8 hours Zofran 4 mg IV every 6 hours as needed Pantoprazole 40 mg IV daily NSS + KCl 20 mEq at 100 mL/h Acetaminophen 1 g IV every 8 hours as needed for mild pain or fever Awaiting transfer for patient to tertiary care center, for IR drainage Serial CBC with differential, chemistry and magnesium labs Muscular dystrophy/BiPAP dependent- Whenever patient is lying down she must be wearing BiPAP COPD- Continue Arnuity Ellipta, Anoro Ellipta. DuoNebs every 2 hours as needed Diabetes mellitus- Hold metformin Placed on Accu-Cheks with NovoLog SSI History of Present Illness Chief Complaint: The patient initially seen by the ED in the emergency department on 10/11/2023 at 04pm. she was diagnosed with a diverticular abscess, and surgical assessment at that time requested the patient be transferred to a tertiary care center. Since that time, the patient has been waiting for a bed to open, and the emergency department asks that hospital medicine now admit the patient the evening of 10/12/2023 to continue ongoing medical care until a bed is available at tertiary care center. Primary Care Provider: KATHRINE Oquendo The patient is a 63-year-old female with a past medical history including GERD, depression, nicotine dependence, COPD with emphysema, pulmonary hypertension, lower extremity edema, diabetes mellitus, hypertension, tachycardia, muscular dystrophy that is BiPAP dependent when lying down, and chronic bronchitis. The patient presented to the emergency department the previous evening as noted above. She reports her symptoms of abdominal pain are overall slightly improved. Her breathing with BiPAP is not quite as good as her on BiPAP at home, but is acceptable, and must be worn at all times while lying down. The patient has been receiving Zosyn as directed, and her usual inhalers and other medications orally. Allergies Allergy/AdvReac Type Severity Reaction Status Date / Time No Known Allergies Allergy Unverified 10/11/23 21:51 Home Medications Medication Instructions Recorded Confirmed Type fluticasone propionate 50 1 sprays intranasal BID PRN 01/15/19 10/11/23 Rx mcg/actuation nasal allergy symptoms #18.2 grams spray,suspension Portable Oxygen [id number] #1 ea 09/12/20 05/11/23 Rx Incentive Spirometer #1 ea 10/18/20 05/11/23 Rx albuterol sulfate 90 mcg/actuation 2 puff inhalation Q4H PRN 10/14/21 10/11/23 Rx aerosol inhaler (ProAir HFA) shortness of breath #18 grams hydrochlorothiazide 25 mg tablet 25 mg PO DAILY #90 tabs 11/25/22 10/11/23 Rx metformin 500 mg tablet,extended 500 mg PO DAILY #90 tabs 11/25/22 10/11/23 Rx release 24hr (osmotic) potassium chloride 20 mEq 20 meq PO BID #180 tabs 11/25/22 10/11/23 Rx tablet,extended release metoprolol succinate 50 mg 50 mg PO DAILY #90 tabs 12/14/22 10/11/23 Rx tablet,extended release 24 hr Flutter Valve #1 ea 04/14/23 05/11/23 Rx omeprazole 20 mg capsule,delayed 20 mg PO QAM 10/11/23 10/11/23 History release fluticasone fur. 100 mcg-umeclid 1 inh inhalation DAILY 10/12/23 10/12/23 History 62.5 mcg-vilant 25 mcg inhalat.powder (Trelegy Ellipta) gabapentin 100 mg capsule 200 mg PO HS 10/12/23 10/12/23 History Past Med/Surg History Medical History (Updated 10/13/23 @ 05:10 by Armando Bonner MD) BiPAP (biphasic positive airway pressure) dependence Encounter for screening for malignant neoplasm of rectum Encounter for screening for malignant neoplasm of colon Nicotine dependence Acute respiratory failure with hypoxia Bilateral leg weakness Right leg pain Muscular dystrophy Tachycardia Hypertension Acid reflux Cellulitis Chronic bronchitis Leukocytosis Hypokalemia Surgical History Hx of cholecystectomy Family History Denies family history of Ovarian cancer Prostate cancer Myocardial infarction Breast cancer Social History Smoking Status: Current every day smoker Tobacco Type: Cigarettes Hx Alcohol Use: Yes Alcohol type: hard liquor Hx Substance Use: No Preferred Language: Hungarian Communication Ability: Effective Water System Operator Required: No Beliefs That Will Affect Care: None marital status: Current Living Situation: Spouse current occupational status: disabled Feels Safe at Home: Yes Safety Concerns: Feels Safe At This Time caffeine: Yes Dental Care, Regularly: No Physical Activity Frequency: Does not Exercise Seatbelt Use: always Sunscreen Use: Yes Assistive Devices: BiPap and Walker Review of Systems Review of Systems: The patient denies chest pain, palpitations, shortness of breath, dyspnea on exertion, cough, lower extremity swelling, sore throat, fevers, chills, sweats, vomiting, blood in urine or stool, dysuria, urinary frequency or urgency, lightheadedness, dizziness, headache, memory loss, loss of consciousness, rash, abnormal bruising or bleeding, imbalance, focal or generalized weakness, numbness or tingling in arms or legs, generalized arthralgias or myalgias, back or neck pain, or night sweats. The review of systems is otherwise negative other than for that already noted above, and at least 10 systems have been reviewed. Physical Exam Physical Exam: The patient is awake, alert and oriented 3, well developed and well nourished, normocephalic and atraumatic, lying in bed and in no acute distress. HEENT--PERRL, EOMI, mucous membranes and oropharynx dry. Neck--supple. No JVD. No bruits. Thyroid normal, trachea midline, no adenopathy. Heart--normal S1 and S2. No murmurs, rubs or gallops. Lungs--clear bilaterally, no respiratory distress, no accessory muscle use. Abdomen--normal bowel sounds, soft, mild tenderness left lower quadrant Extremities--No edema. Dermatologic--normal skin turgor, normal color, no abnormal lymph nodes, no rash. Neurologic--cranial nerves II through XII grossly intact. Rheumatologic--normal range of motion. Psychiatric--normal affect. Results & Data Results & Data Vital Signs (Past 12 Hours) Vital Signs Pulse Pulse Resp BP BP Pulse Ox O2 Del Method 10/12/23 19:57 74 20 110/76 98 BiPAP 10/12/23 18:00 90 18 96 10/12/23 17:30 94 H 16 97 10/12/23 17:00 97 H 20 95 10/12/23 16:30 106 H 26 H 163/103 H 95 10/12/23 16:00 122 H 30 H 92 BiPAP 10/12/23 15:23 120 H 28 H 96 BiPAP 10/12/23 15:13 124 H 25 H 96 10/12/23 15:00 99 H 19 98 10/12/23 14:30 73 26 H 98 10/12/23 14:00 69 24 94 10/12/23 13:30 74 25 H 91 10/12/23 13:15 146/93 H 10/12/23 13:15 90 24 98 10/12/23 13:00 70 22 97 10/12/23 12:30 84 23 99 10/12/23 12:00 65 21 98 10/12/23 12:00 112/69 10/12/23 11:02 65 18 96 10/12/23 11:02 124/72 10/12/23 10:00 75 20 96 O2 Flow Rate FiO2 10/12/23 19:57 36 10/12/23 18:00 10/12/23 17:30 10/12/23 17:00 10/12/23 16:30 10/12/23 16:00 5 10/12/23 15:23 4.5 10/12/23 15:13 4.5 10/12/23 15:00 10/12/23 14:30 10/12/23 14:00 10/12/23 13:30 10/12/23 13:15 10/12/23 13:15 10/12/23 13:00 10/12/23 12:30 10/12/23 12:00 10/12/23 12:00 10/12/23 11:02 10/12/23 11:02 10/12/23 10:00 Laboratory Results Laboratory Results WBC 14.79 K/ul (4.8-10.8) H 10/13/23 03:43 RBC 3.71 M/uL (4.20-5.40) L 10/13/23 03:43 Hgb 10.9 g/dl (12.0-16.0) L 10/13/23 03:43 Hct 37.4 % (37.0-47.0) 10/13/23 03:43 MCV 100.8 fL (80.0-100.0) H 10/13/23 03:43 MCH 29.4 pg (25.0-34.0) 10/13/23 03:43 MCHC 29.1 g/dL (32.0-36.0) L 10/13/23 03:43 RDW Std Deviation 54.4 fL (36.4-46.3) H 10/13/23 03:43 RDW Coeff of Vaishali 14.6 % (11.5-14.5) H 10/13/23 03:43 Plt Count 343 K/uL (130-400) 10/13/23 03:43 MPV 9.9 fL (9.4-12.4) 10/13/23 03:43 Immature Gran % (Auto) 0.7 % 10/13/23 03:43 Neut % (Auto) 90.0 % 10/13/23 03:43 Lymph % (Auto) 7.3 % 10/13/23 03:43 Gilliam % (Auto) 1.8 % 10/13/23 03:43 Eos % (Auto) 0.0 % 10/13/23 03:43 Baso % (Auto) 0.2 % 10/13/23 03:43 Neut # (Auto) 13.31 K/uL (1.40-6.50) H 10/13/23 03:43 Lymph # (Auto) 1.08 K/uL (1.20-3.40) L 10/13/23 03:43 Gilliam # (Auto) 0.27 K/uL (0.11-0.59) 10/13/23 03:43 Eos # (Auto) 0.00 K/uL (0.00-0.50) 10/13/23 03:43 Baso # (Auto) 0.03 K/uL (0.00-0.20) 10/13/23 03:43 Immature Gran # (Auto) 0.10 K/uL (0.01-0.20) 10/13/23 03:43 Sodium 137 mmol/L (136-145) 10/13/23 03:43 Potassium 3.5 mmol/L (3.5-5.1) 10/13/23 03:43 Chloride 99 mmol/L (98-107) 10/13/23 03:43 Carbon Dioxide 26 mmol/L (21-32) 10/13/23 03:43 Anion Gap 12 (3-11) H 10/13/23 03:43 BUN 12 mg/dl (6-23) 10/13/23 03:43 Creatinine 0.41 mg/dl (0.6-1.2) L 10/13/23 03:43 Est Cr Clr Drug Dosing 140.2 ml/min 10/13/23 03:43 Est GFR ( Amer) 128.3 ml/min 10/13/23 03:43 Est GFR (Non-Af Amer) 110.7 ml/min 10/13/23 03:43 BUN/Creatinine Ratio 29.3 (10-20) H 10/13/23 03:43 Glucose 107 mg/dl (70-99(Fasting)) H 10/13/23 03:43 POC Glucose 130 mg/dl (70-99) H 10/13/23 00:38 Calcium 8.4 mg/dl (8.6-10.3) L 10/13/23 03:43 Magnesium 1.8 mg/dl (1.7-2.4) 10/13/23 03:43 Total Bilirubin 0.4 mg/dl (0.2-1.0) 10/13/23 03:43 AST 39 U/L (13-39) 10/13/23 03:43 ALT 33 U/L (7-52) 10/13/23 03:43 Alkaline Phosphatase 98 U/L (34-104) 10/13/23 03:43 B-Natriuretic Peptide 281 pg/ml (0-100) H 10/12/23 16:20 Total Protein 5.7 gm/dl (6.0-8.3) L D 10/13/23 03:43 Albumin 2.9 gm/dl (3.4-5.0) L 10/13/23 03:43 Globulin 2.8 gm/dl (2.5-4.0) 10/13/23 03:43 Albumin/Globulin Ratio 1.0 (0.9-2) 10/13/23 03:43 Lipase 33 U/L (11-82) 10/11/23 19:12 Procalcitonin 0.60 ng/ml (0-0.5) H 10/12/23 20:33 SARS-CoV-2, RNA, NAAT NEGATIVE (NEGATIVE) 10/11/23 23:03 Impressions KUB X-Ray 10/11/23 18:55 XR KUB/Abdomen 1 view CLINICAL HISTORY: pain TECHNIQUE: 1 view of the abdomen was obtained. Comparison: None available at the time of this dictation. FINDINGS: Lung bases are unremarkable. Degenerative changes are seen in the visualized skeleton. There is subluxation of the bilateral hip joints, likely degenerative. The bowel gas pattern is nonobstructive. Small stool burden is seen. IMPRESSION: Nonobstructive bowel gas pattern. ACT 112: Negative or not required by law. Electronically signed by: Jorge Alberto Angel M.D. 10/12/2023 7:15 AM Abdomen/Pelvis CT 10/11/23 19:24 Exam(s): CT ABDOMEN + PELVIS With Contrast IV Amt: 89 ml optiray 320 EXAM: CT Abdomen and Pelvis With Intravenous Contrast CLINICAL HISTORY: Reason for exam: lower pain. TECHNIQUE: Axial computed tomography images of the abdomen and pelvis with intravenous contrast. CTDI is 34.91 mGy and DLP is 1843.14 mGy-cm. Automated exposure control was utilized for the study. A dose lowering technique was utilized adhering to the principles of ALARA. CONTRAST: Patient received 89 ml optiray 320 of IV contrast COMPARISON: No relevant prior studies available. FINDINGS: Lung bases: Lungs demonstrate bibasilar atelectasis. ABDOMEN: Liver: Fatty infiltration of the liver. Gallbladder and bile ducts: Gallbladder has been removed. No ductal dilation. Pancreas: Unremarkable. No mass. No ductal dilation. Spleen: Unremarkable. No splenomegaly. Adrenals: 2.5 cm left adrenal nodule incompletely characterized on this single phase contrast-enhanced exam. Kidneys and ureters: Simple right renal cysts measuring up to 2.1 cm. No further workup is required. 0.4 cm calcification in the mid right kidney which appears to be associated with a cystic lesion concerning for a calculus in a calyceal diverticulum. No hydronephrosis. Stomach and bowel: Irregular fluid collection between the rectum and mid sigmoid colon measuring 5.4 x 5.9 x 7.0 cm most consistent with an abscess secondary to diverticulitis. No obstruction. PELVIS: Appendix: No findings to suggest acute appendicitis. Bladder: Unremarkable. No mass. Reproductive: Unremarkable as visualized. ABDOMEN and PELVIS: Intraperitoneal space: Unremarkable. No free air. No significant fluid collection. Bones/joints: No acute fracture. Chronically dislocated bilateral hips. Soft tissues: Marked muscular atrophy. Vasculature: Unremarkable. No abdominal aortic aneurysm. Lymph nodes: Unremarkable. No enlarged lymph nodes. IMPRESSION: 1. Irregular fluid collection between the rectum and mid sigmoid colon measuring 5.4 x 5.9 x 7.0 cm most consistent with an abscess secondary to diverticulitis. 2. 2.5 cm left adrenal nodule incompletely characterized on this single phase contrast-enhanced exam. 3. 0.4 cm calcification in the mid right kidney which appears to be associated with a cystic lesion concerning for a calculus in a calyceal diverticulum. Electronically signed by: Partha Hernandez M.D. 10/11/23 22:06 PM Chest X-Ray 10/12/23 15:23 SINGLE VIEW CHEST CLINICAL HISTORY: Dyspnea. COPD. FINDINGS: 2 AP, portable, upright chest radiographs are compared to study dated 10/11/2023 and correlated with chest CT dated 10/13/2021. The heart is enlarged noting atherosclerotic calcification of the thoracic aorta. The pulmonary vasculature is noncongested. Emphysema and chronic interstitial thickening is similar to previous. There is bibasilar scarring/atelectasis. A pleural density at the left lung base is unchanged and corresponds to a large fat-containing Bochdalek hernia when compared to the prior CT scan. No pneumothorax is seen. The skeletal structures are osteopenic. The bony thorax is grossly intact. Cholecystectomy clips are seen in the right upper quadrant. IMPRESSION: 1. Cardiomegaly and emphysema without radiographic evidence of congestive failure. 2. No airspace consolidation or large pleural effusion is identified. ACT 112: Negative or not required by law. Electronically signed by: Cedric Barbosa M.D. 10/12/2023 4:18 PM Code Status & VTE Plan Code Status Full code VTE Prophylaxis Plan VTE Prophylaxis will be ordered: Yes PG Care Time/CCT Total # of Minutes Spent Total Time Spent with Patient: Total time spent is greater than 50% in coordination of care (as documented) at patient's floor/unit and/or counseling patient: Coding Level of Care Code 89205 INT INP/OBS CARE 3/75MIN Diagnoses Colonic diverticular abscess K57.20 Chronic respiratory failure with hypoxia J96.11 Muscular dystrophy G71.00 BiPAP (biphasic positive airway pressure) dependence Z99.89 Pulmonary hypertension I27.20 Diabetes mellitus E11.9 Acid reflux K21.9 Nicotine dependence F17.200 Depression F32.A
[2023-10-12 21:12] LABS: Hematocrit (blood only) 40.4 % (37.0-47.0); Mean Corpuscular Hemoglobin 29.8 pg (25.0-34.0); Mean Corpuscular Hgb Conc 29.7 g/dL (32.0-36.0); Mean Corpuscular Volume 100.2 fL (80.0-100.0); Mean Platelet Volume 9.8 fL (9.4-12.4); Platelet Count 355 K/uL (130-400); RDW Coefficient of Variation 14.6 % (11.5-14.5); RDW Standard Deviation 54.4 fL (36.4-46.3); Red Blood Count 4.03 M/uL (4.20-5.40); White Blood Count 17.89 K/ul (4.8-10.8)
[2023-10-12 21:17] LABS: Calcium 8.6 mg/dl (8.6-10.3)
[2023-10-12 21:22] LABS: BUN Creatinine Ratio 34.3 (10-20); Creatinine Clr Calc Pharmacy 164.3 ml/min; Est GFR (African American) 135.2 ml/min; Est GFR (Non-African American) 116.6 ml/min
[2023-10-12] MEDS ORDERED: ALBUTEROL HFA 8 GM INHALER INH PRN (22:14)
[2023-10-12] MEDS ORDERED: ALBUT/IPRATROP 3MG/0.5MG NEB 3 ML VIAL NEB PRN (22:14)
[2023-10-12] MEDS ORDERED: CARBOHYDRATES FOR HYPOGLYCEMIA PO PRN (22:14)
[2023-10-12] MEDS ORDERED: FLUTICASONE PROPIONATE NA SPR 16 GM BTL NAE PRN (22:14)
[2023-10-12] MEDS ORDERED: DEXTROSE 50% 50 ML SYRINGE IV PRN (22:14)
[2023-10-12] MEDS ORDERED: GLUCAGON FOR INJ 1 MG VIAL SQ PRN (22:14)
[2023-10-12] MEDS ORDERED: ONDANSETRON INJ 2 MG/ML 2 ML VIAL IV PRN (22:14)
[2023-10-12] MEDS ORDERED: GLUCOSE 40% GEL 15 GM TUBE PO PRN (22:14)
[2023-10-12] MEDS ORDERED: GLUCOSE 10 TAB/TUBE PO PRN (22:14)
[2023-10-12 22:20] LABS: Basophils # (auto) 0.04 K/uL (0.00-0.20); Basophils % (auto) 0.2 %; Eosinophils # (auto) 0.04 K/uL (0.00-0.50); Eosinophils % (auto) 0.2 %; Immature Granulocytes # (auto) 0.13 K/uL (0.01-0.20); Immature Granulocytes % (auto) 0.7 %; Lymphocytes # (auto) 0.53 K/uL (1.20-3.40); Monocytes # (auto) 0.27 K/uL (0.11-0.59); Monocytes % (auto) 1.5 %; Neutrophils # (auto) 16.88 K/uL (1.40-6.50); Neutrophils % (auto) 94.4 %
[2023-10-13] MEDS: INSULIN ASPART PER UNIT CHARGE SC SCH (00:55)
[2023-10-13] MEDS: ACETAMINOPHEN 1000 MG/100 ML IV IV PRN (00:59)
[2023-10-13] MEDS: POTASSIUM CHLORIDE / WTR 10 MEQ/100 ML PLCT IV SCH (01:02)
[2023-10-13 02:10] LABS: Magnesium 1.8 mg/dl (1.7-2.4)
[2023-10-13 04:21] LABS: Basophils # (auto) 0.03 K/uL (0.00-0.20); Basophils % (auto) 0.2 %; Hematocrit (blood only) 37.4 % (37.0-47.0); Hemoglobin 10.9 g/dl (12.0-16.0); Immature Granulocytes % (auto) 0.7 %; Lymphocytes # (auto) 1.08 K/uL (1.20-3.40); Lymphocytes % (auto) 7.3 %; Mean Corpuscular Hemoglobin 29.4 pg (25.0-34.0); Mean Corpuscular Hgb Conc 29.1 g/dL (32.0-36.0); Mean Corpuscular Volume 100.8 fL (80.0-100.0); Mean Platelet Volume 9.9 fL (9.4-12.4); Monocytes # (auto) 0.27 K/uL (0.11-0.59); Monocytes % (auto) 1.8 %; Neutrophils # (auto) 13.31 K/uL (1.40-6.50); Platelet Count 343 K/uL (130-400); RDW Coefficient of Variation 14.6 % (11.5-14.5); RDW Standard Deviation 54.4 fL (36.4-46.3); Red Blood Count 3.71 M/uL (4.20-5.40); White Blood Count 14.79 K/ul (4.8-10.8)
[2023-10-13 04:42] LABS: Albumin Level 2.9 gm/dl (3.4-5.0); BUN Creatinine Ratio 29.3 (10-20); Bilirubin,Total 0.4 mg/dl (0.2-1.0); Calcium 8.4 mg/dl (8.6-10.3); Creatinine Clr Calc Pharmacy 140.2 ml/min; Est GFR (African American) 128.3 ml/min; Est GFR (Non-African American) 110.7 ml/min; Globulin 2.8 gm/dl (2.5-4.0); Magnesium 1.8 mg/dl (1.7-2.4); Potassium 3.5 mmol/L (3.5-5.1); Total Protein 5.7 gm/dl (6.0-8.3)
[2023-10-13 07:03] LABS: Estimated Average Glucose 146 mg/dl; Hemoglobin A1C 6.7 % (4.5-5.6)
[2023-10-13] MEDS ORDERED: PANTOprazole 40 MG in SYRINGE 0 ML IV SCH (11:00)
[2023-10-13 11:24] LABS: iSTAT Arterial Blood Gas HCO3 27 meg/L (19-24); iSTAT Arterial Blood Gas pCO2 51 mmHg (35-46); iSTAT Arterial Blood Gas pH 7.33 (7.35-7.45); iSTAT Arterial Blood Gas pO2 46 mmHg (80-95); iSTAT Carbon Dioxide 28 mmol/L (24-31); iSTAT Hematocrit 42 % (37-47); iSTAT Hemoglobin 14.3 g/dl (12.0-16.0); iSTAT Potassium 3.4 mmol/L (3.3-5.0); iSTAT Sodium 138 mmol/L (135-144)
--- NOTE | 2023-10-13 15:03 | Discharge Summary ---
Date of Service October 13, 2023 Admission HPI Per Admitting Provider The patient is a 63-year-old female with a past medical history including GERD, depression, nicotine dependence, COPD with emphysema, pulmonary hypertension, lower extremity edema, diabetes mellitus, hypertension, tachycardia, muscular dystrophy that is BiPAP dependent when lying down, and chronic bronchitis. The patient presented to the emergency department the previous evening as noted above. She reports her symptoms of abdominal pain are overall slightly improved. Her breathing with BiPAP is not quite as good as her on BiPAP at home, but is acceptable, and must be worn at all times while lying down. The pa alesha has been receiving Zosyn as directed, and her usual inhalers and other medications orally. Principal Diagnosis peridiverticular abscess transfer to [facility] Discharge Exam transfer before being seen Discharge Data Allergies Allergy/AdvReac Type Severity Reaction Status Date / Time No Known Allergies Allergy Unverified 10/11/23 21:51 Consultations 10/12/23 21:08 ED Decision to Admit Stat Ordered Studies 10/11/23 19:24 CT abd pelvis IV con only Stat Hospital Course (1) Colonic diverticular abscess: Colonic diverticular abscess- NPO Zosyn 4.5 g IV every 8 hours Zofran 4 mg IV every 6 hours as needed Pantoprazole 40 mg IV daily NSS + KCl 20 mEq at 100 mL/h Acetaminophen 1 g IV every 8 hours as needed for mild pain or fever Transfer for patient to tertiary care center, for IR drainage Serial CBC with differential, chemistry and magnesium labs Muscular dystrophy/BiPAP dependent- Whenever patient is lying down she must be wearing BiPAP COPD-pt needing bipap support for COPD transferred to icu care Continue Arnuity Ellipta, Anoro Ellipta. DuoNebs every 2 hours as needed Diabetes mellitus- Hold metformin Placed on Accu-Cheks with NovoLog SSI (2) Chronic respiratory failure with hypoxia: (3) Muscular dystrophy: (4) BiPAP (biphasic positive airway pressure) dependence: (5) Pulmonary hypertension: (6) Diabetes mellitus: (7) Acid reflux: (8) Nicotine dependence: (9) Depression: Total Time Total Time Spent Total Time Spent (In Minutes): pt was not seen on day of transfer as left ER for transfer. Discharge Plan Discharge Items Patient Disposition: Transfer Acute Care Hospital Reason For Visit: DIVERTICULAR ABSCESS Follow-up/Referrals: Ingirs Zamora CRNP [Primary Care Provider] - Stand-Alone Forms: My [facility] Skilled Items Patient informed of condition?: Yes DNR: No Discharge Level of Care: Other Communicable Disease: No Discharge Prognosis: Stable Lines: Saline Lock Urinary Catheter: Yes (yves) Medications and DC Order Prescriptions: No Action (DME) Portable Oxygen [id number] Misc See Rx Instructions .MEDSUPPLY Qty: 1 0RF Rx Instructions: Oxygen 2 liters continuous via Nasal Cannula with portable concentrator. OPHELIA 99 hydrochlorothiazide 25 mg tablet 25 mg PO DAILY Qty: 90 3RF metformin 500 mg tablet extended release 24hr 500 mg PO DAILY Qty: 90 3RF potassium chloride 20 mEq tablet extended release 20 meq PO BID Qty: 180 3RF metoprolol succinate 50 mg tablet extended release 24 hr 50 mg PO DAILY Qty: 90 3RF (DME) Flutter Valve Device See Rx Instructions .MEDSUPPLY Qty: 1 0RF Rx Instructions: Use it every 6 hours when awake. (DME) Incentive Spirometer Misc See Rx Instructions .MEDSUPPLY Qty: 1 0RF Rx Instructions: As directed albuterol sulfate [ProAir HFA] 90 mcg/actuation HFA aerosol inhaler 2 puff INH Q4H PRN (Reason: shortness of breath) Qty: 18 3RF Trelegy Ellipta 100-62.5-25 mcg blister with device 1 inh inhalation DAILY 0RF fluticasone propionate 50 mcg/actuation spray,suspension 1 sprays intranasal BID PRN (Reason: allergy symptoms) Qty: 18.2 0RF omeprazole 20 mg capsule,delayed release(DR/EC) 20 mg PO QAM Trelegy Ellipta 100-62.5-25 mcg blister with device 1 inh INHALATION DAILY gabapentin 100 mg capsule 200 mg PO HS Admission Data Admit Date/Time: 10/12/23 21:07 Attending Provider: Enrrique Clements Admit Provider: Armando Bonner Primary Care Provider: Ingris Zamora Other Providers: Armando Bonner Coding Level of Care Code None Diagnoses Colonic diverticular abscess K57.20 Chronic respiratory failure with hypoxia J96.11 Muscular dystrophy G71.00 BiPAP (biphasic positive airway pressure) dependence Z99.89 Pulmonary hypertension I27.20 Diabetes mellitus E11.9 Acid reflux K21.9 Nicotine dependence F17.200 Depression F32.A
== END 2023-10-13 10:30 | disposition short-term general hospital (02) | DRG 392 ==
LOC: ED 18:47 → SUATTDRO 10-12 21:07 → EDINP 10-12 21:07